=== PATIENT | male | born 1965 | race Caucasian/White ===

== ENCOUNTER 2023-01-02 19:58 | Emergency (ER) | payer SELFPAY ==
[~2023-01-02] VITALS: Ht 172.7 cm; Wt 68.0 kg
[2023-01-02 19:58] VITALS: BP 130/78; PULSE 112; RESP 17; TEMP 97.6; O2SAT 99
--- NOTE | 2023-01-02 20:03 | NUR ---
PT. ANNELISE KONG. PLACED IN BED 03.
--- NOTE | 2023-01-02 20:11 | NUR ---
Patient being evaluated by physician at bedside.
[2023-01-02] MEDS ORDERED: NACL 0.9% 2,000 ML IV ONE (20:35)
[2023-01-02 20:42] LABS: BASOPHILS % (AUTO) 0.6 % (0.0-2.0); EOSINOPHILS # (AUTO) 0.2 K/uL (0-0.4); EOSINOPHILS % (AUTO) 2.3 % (0.0-4.0); HEMATOCRIT 31.1 % (36-52); HEMOGLOBIN 9.9 g/dL (12.0-18.0); LYMPHOCYTES # (AUTO) 1.2 K/uL (2.0-11.5); LYMPHOCYTES % (AUTO) 17.5 % (20.5-51.1); MEAN CORPUSCULAR HEMOGLOBIN 25 pg (27-31); MEAN CORPUSCULAR HGB CONC 32 g/dL (33-37); MEAN CORPUSCULAR VOLUME 77.2 fL (80-94); MONOCYTES # (AUTO) 0.6 K/uL (0.8-1.0); MONOCYTES % (AUTO) 8.4 % (1.7-9.3); NEUTROPHILS # (AUTO) 4.7 K/uL (1.8-7.7); NEUTROPHILS % (AUTO) 71.2 % (42.2-75.2); PLATELET COUNT (AUTO) 375 K/uL (140-450); RED BLOOD CELL COUNT(AUTO) 4.02 MIL/uL (4.20-6.10); RED CELL DISTRIBUTION WIDTH 19.1 % (11.6-13.7); WHITE BLOOD COUNT (AUTO) 6.7 K/uL (4.8-10.8)
[2023-01-02 21:01] LABS: ALBUMIN 3.5 g/dL (3.4-5.0); ANION GAP 15.9 (8-16); ASPARTATE AMINOTRANSFERASE 36 U/L (15-37); CARBON DIOXIDE 24.9 mmol/L (21-32); CHLORIDE 108 mmol/L (98-107); CREATININE 1.9 mg/dL (0.6-1.3); GFR ARICAN-AMERICAN 47 mL/min (>90); GLUCOSE 66 mg/dL (74-106); POTASSIUM 3.8 mmol/L (3.5-5.1); SODIUM SERUM 145 mmol/L (136-145); TOTAL BILIRUBIN 0.2 mg/dL (0.0-1.0); UREA NITROGEN, BLOOD 38 mg/dL (7-18)
[2023-01-02 21:02] LABS: SALICYLATE < 2.8 mg/dL (2.8-20.0)
[2023-01-02 21:04] LABS: ACETAMINOPHEN < 0.5 ug/ml (10-30)
[2023-01-02 21:20] LABS: BARBITURATE, URINE NEGATIVE ng/ml (NEG <=200); BENZODIAZEPINE, URINE NEGATIVE ng/mL (NEG <=200); COCAINE, URINE POSITIVE ng/mL (NEG <=300)
[2023-01-02 21:21] LABS: CANNABINOID, URINE NEGATIVE ng/mL (NEG <=50); OPIATE, URINE POSITIVE ng/mL (NEG <=2000); PHENCYCLIDINE SCREEN,URINE NEGATIVE ng/mL (NEG <=25)
[2023-01-02 22:18] VITALS: O2SAT 97
--- NOTE | 2023-01-02 22:27 | NUR ---
57YR OLD MALE BIB EMS C/O OD . PT WAS FOUND ON THE STREETS. PT IS FROM THE STREETS. [facility]ARCON BY EMS IN. FIELD PT IS A&OX3. RESP EVEN AND UNLABORED. ON BEDSIDE MONITOR. PT IS A IV DRUG USER PT STATES USING HEROIN YESTERDAY AND METH TODAY. HOB ELEVATED. 22G IV CATH IN L HAND. NKDA HTN
[2023-01-03] MEDS ORDERED: NALO4SPR NS (00:04)
[2023-01-03 01:05] VITALS: BP 147/90; PULSE 82; RESP 12; O2SAT 100
--- NOTE | 2023-01-03 01:05 | NUR ---
Patient discharged with v/s stable. Written and verbal after care instructions given and explained. Patient verbalized understanding. Ambulatory with steady gait. All questions addressed prior to discharge. Advised to follow up with PMD.
== END 2023-01-03 01:05 | disposition home or self-care (01) ==
LOC: MED 19:58
DX: T40.601A Poisoning by unspecified narcotics, accidental (unintentional), initial encounter (principal); F15.10 Other stimulant abuse, uncomplicated; F14.10 Cocaine abuse, uncomplicated; D64.9 Anemia, unspecified; Z79.899 Other long term (current) drug therapy; Y92.89 Other specified places as the place of occurrence of the external cause
CPT/HCPCS: 36415; 80053; 80305; 85025; 93005; 96360; 99284; G0480; G0482; J7030